=== PATIENT | male | born 1995 | race Caucasian/White ===

== ENCOUNTER 2022-04-07 17:10 | Emergency (ER) | payer OTHER, SELFPAY ==
[2022-04-07 17:40] VITALS: BP 111/79; PULSE 79; RESP 18; TEMP 37.1; O2SAT 100
[2022-04-07 19:07] LABS: Bilirubin Negative (Negative); Blood Large (Negative); Clarity Cloudy (Clear); Glucose Negative (Negative); Ketones Negative (Negative); Leukocyte Esterase Moderate (Negative); Nitrite Negative (Negative); Urobilinogen 0.2 EU/dL (Up TO 0.2)
[2022-04-07 19:20] LABS: Bacteria Moderate HPF (Negative); C & S Indicated? Yes; Casts Negative LPF (Negative); Crystals Negative HPF (Negative); Epithelial Cells Few HPF (Negative); Mucus Trace (Negative); WBC 20-50 HPF (0-5)
--- NOTE | 2022-04-07 19:36 | ED.GENADUL_ITS ---
Discharge Plan Disposition Patient Disposition: Home Condition: Stable Discharge Details Clinical Impression: Urinary tract infection Primary Care Provider: Unknown,Unknown ED Provider: Israel Garcia Home Meds and New Rx's Prescriptions: New cephalexin 500 mg tablet 500 mg PO BID 6 Days Qty: 12 0RF Discharge Instructions Instructions: Urinary Tract Infection in Men (ED) Additional Instructions: Continue to monitor your symptoms and return to the emergency department immediately if you have any worsening of your condition. Take your medication as prescribed and we will contact you with any further positive results and further treatment that you may need as discussed. If you develop high fevers, significant vomiting, or significant pain these are also reasons to return to the emergency department. If you are not improving in the next week follow-up with your primary care provider for further testing. Referrals: Primary Care Provider [Outside] - 1 week (If not improving) Discharge Data Discharge Date/Time-TO BE ENTERED AT DEPARTURE: 04/07/22 20:02 Medical Decision Making Patient presenting to the emergency department for chief complaint of dysuria. Patient states some general malaise over the past 3 days with then yesterday starting having some burning with urination and mild flank pain. Patient denies any penile discharge, testicular swelling or discomfort, rash or lesion. Patient also denies any new sexual partners and states current sexual partner is asymptomatic and he feels low risk for sexually transmitted infection. Physical exam is unremarkable. Suspect urinary tract infection so we will perform urinalysis and will also perform urine gonorrhea chlamydia send out testing. Review of labs show large amount of blood, leukocyte esterase, and 20-50 WBCs with moderate bacteria. Urine culture was already reflexively ordered by lab. We will start patient on antibiotics for urinary tract infection. Given that patient states low suspicion of sexually transmitted infection discussed thoroughly with patient risk first benefit of initiating meds but we will hold off at this time for any STI treatment and will contact patient for any positive results. After discussion of diagnosis and plan of care patient has no further needs, questions, or concerns and states clear understanding to return to the emergency department for any worsening symptoms. This documentation was generated using [employer] system, please disregard any oddities of phrase or misspellings. Lab Data Lab results reviewed: Yes I reviewed the patient's lab results. HPI General Mode of arrival: ambulatory . Date/Time Provider Initiated Documentation: 04/07/22 18:26 . Limitations to Documentation: no limitations . Information obtained by: patient and RN notes reviewed . History of Present Illness 26 year old M presents to the emergency department with the chief complaint of Burning with urination, described as mild, with intensity rated at 3. Quality is described as burning, Patient started experiencing this day(s) (5) and it has been constant. No relieving factors improve symptom(s), No exacerbating factors reported . Patient notes no other symptoms.. Patient did receive the following treatments prior to arrival, none Related Data Home Medications Medication Instructions Recorded Confirmed cephalexin 500 mg tablet 500 mg PO BID 6 days #12 tabs 04/07/22 Previous Rx's Medication Instructions Recorded cephalexin 500 mg tablet 500 mg PO BID 6 days #12 tabs 04/07/22 General Stated Complaint: Urinary DEMETRICE: 3 Review of Systems Constitutional Constitutional: Denies body ache(s), Denies chills, Denies fever(s), Denies malaise and Denies weakness Cardiovascular Cardiovascular: Denies chest pain Respiratory Respiratory: Reports system reviewed and no additional complaints, except as documented Gastrointestinal Gastrointestinal: Denies abdominal pain, Denies nausea and Denies vomiting Genitourinary Genitourinary: Reports as per HPI, Denies hematuria, Reports difficulty urinating, Denies genital lesions, Denies genital pain, Reports dysuria, Denies penile discharge, Denies testicular pain and Reports urinary urgency Neurologic Neurologic: Denies confusion and Denies weakness Psychiatric Psychiatric: Denies confusion PFSH All Active Problems (Updated 04/07/22 @ 19:52 by Israel Garcia NP) Urinary tract infection (Acute) Social History Smoking risk assessment performed?: No Exam Const General: cooperative and no acute distress Orientation: alert, awake and oriented x3 Resp Effort & Inspection: normal respiratory effort and able to speak in complete sentences Auscultation: clear to auscultation bilaterally Cardio Rate: regular rate Rhythm: regular rhythm Heart Sounds: S1 normal and S2 normal GI Palpation: nontender General: deferred Back/Spine/Pelvis Back: no CVA tenderness Neuro General: patient alert, patient awake and patient oriented x3 Extrem General: capillary refill normal Course Vital Signs Vital signs: Vital Signs Temperature 37.1 C 04/07/22 17:40 Pulse 79 04/07/22 17:40 Respiratory Rate 18 04/07/22 17:40 Blood Pressure 111/79 04/07/22 17:40 Pulse Oximetry 100 04/07/22 17:40 Temperature 37.1 C 04/07/22 17:40 Pulse 79 04/07/22 17:40 Respiratory Rate 18 04/07/22 17:40 Respiratory Effort 04/07/22 18:51 Blood Pressure 111/79 04/07/22 17:40 Blood Pressure Position Sitting 04/07/22 17:40 Pulse Oximetry 100 04/07/22 17:40 Oxygen Delivery Method Room Air 04/07/22 17:40 Oxygen Flow Rate 0 04/07/22 17:40 Pain Level 3 04/07/22 17:40 Lab/Test Results Lab/Test Results: 04/07/22 17:15 Urine - Reflex from Ua Urine Culture - Pending Laboratory Tests Range/Units 04/07/22 04/07/22 17:15 18:38 Urine Color (Yellow) Red Urine Clarity (Clear) Cloudy Urine pH (5-8) 6.0 Ur Specific [place] (1.005-1.025) 1.010 Urine Protein (Negative) mg/dL 100 H Urine Ketones (Negative) mg/dL Negative Urine Blood (Negative) Large H Urine Nitrite (Negative) Negative Urine Bilirubin (Negative) Negative Urine Urobilinogen (Up TO 0.2) EU/dL 0.2 Ur Leukocyte Esterase (Negative) Moderate H Urine RBC (0-2) HPF 10-20 H Urine WBC (0-5) HPF 20-50 H Ur Epithelial Cells (Negative) HPF Few Urine Crystals (Negative) HPF Negative Urine Bacteria (Negative) HPF Moderate Urine Casts (Negative) LPF Negative Urine Mucus (Negative) Trace Ur Culture Indicated? Yes Urine Glucose (Negative) mg/dL Negative N.gonorrhoeae DNA Probe Cancelled
[2022-04-07] MEDS: Cephalexin 500 MG CAP PO (19:56)
[2022-04-07] MEDS: Phenazopyridine 100 MG TAB PO (19:57)
[2022-04-07] MEDS: Phenazopyridine 100 MG TAB, 2 TABS/BTL PO (19:57)
[2022-04-07] MEDS: Cephalexin 500 MG CAP, 2 CAPS/BTL PO (19:57)
[2022-04-10 12:24] LABS: Chlamydia Result Negative (Negative); GC Result Negative (Negative)
--- NOTE | 2022-04-11 18:12 | NUR.NOTE ---
Nursing Note: PT called looking for C/G results. Gave negative results to patient, transferred to medical records for paper copy per patients request
== END 2022-04-07 20:02 | disposition home or self-care (01) ==
PROVIDERS: Emergency Provider Nurse Practitioner Family
DX: N39.0 Urinary tract infection, site not specified (principal)
CPT/HCPCS: 87077; 87491; 87591; 99283; 81003; 81015; 87086; 87186; 99284